=== PATIENT | male | born 1970 | race American Indian/Alaskan Native ===

== ENCOUNTER 2021-10-28 16:00 | Emergency (ER) | payer SELFPAY ==
[2021-10-28 16:14] VITALS: BP 228/122
== END 2021-10-28 17:51 | disposition left against medical advice (07) ==
LOC: ED 16:00
DX: Z00.00 Encounter for general adult medical examination without abnormal findings (principal); Z53.21 Procedure and treatment not carried out due to patient leaving prior to being seen by health care provider